=== PATIENT | female | born 1975 | race Caucasian/White ===

== ENCOUNTER → 2021-02-15 | Outpatient (CLI) | payer OTHER | LOC: KOH-I 13:21 | DX: M25.561 Pain in right knee (principal); M17.11 Unilateral primary osteoarthritis, right knee; M25.861 Other specified joint disorders, right knee | CPT/HCPCS: 73721 ==

== ENCOUNTER → 2021-07-15 | Outpatient (CLI) | payer OTHER | LOC: US 13:18 | DX: I80.203 Phlebitis and thrombophlebitis of unspecified deep vessels of lower extremities, bilateral (principal) | CPT/HCPCS: 93970 ==